=== PATIENT | female | born 1935 | race Hispanic/Latino ===

== ENCOUNTER 2018-11-29 10:23 | Observation (INO) | payer MEDICARE ==
[~2018-11-29] VITALS: Ht 154.9 cm; Wt 53.0 kg
[2018-11-29] MEDS ORDERED: METHYLPREDNISOLONE SOD SUCC 125 MG/2ML VIAL IV STA (10:48)
[2018-11-29] MEDS ORDERED: SODIUM CHLORIDE 0.9% 500ML 500 ML IV STA (10:48)
[2018-11-29] MEDS ORDERED: ALBUTEROL/IPRATROPIUM 3 ML NEB NEB ONE (11:00)
--- NOTE | 2018-11-29 11:05 | NUR ---
EKG PERFORMED AT BEDSIDE, NOTED THAT PT IS IN A FIB WITH RVR, INFORMED DR. HARPER; RECEIVED VERBAL ORDERS FOR DILTIAZEM 20 MG IVP ONCE, WILL ADMINISTER AND WILL CONTINUE TO MONITOR PT.
[2018-11-29] MEDS ORDERED: DILTIAZEM HCL VIAL 5 ML ONE (11:07)
[2018-11-29] MEDS ORDERED: DILTIAZEM HCL 5 MG/ML 5 ML VIAL IV ONE (11:15)
[2018-11-29 11:23] LABS: BILIRUBIN,URINE NEGATIVE (NEGATIVE); CLARITY,URINE CLEAR (CLEAR); COLOR,URINE YELLOW (YELLOW); KETONES,URINE NEGATIVE (NEGATIVE); LEUKOCYTE ESTERASE ,URINE TRACE (NEGATIVE); NITRITE,URINE NEGATIVE (NEGATIVE); PROTEIN,URINE DIPSTICK TRACE (NEGATIVE); URINE UROBILINOGEN 0.2 mg/dL (0.2 - 1)
[2018-11-29] MEDS ORDERED: ASPIRIN 81 MG CHEW TAB PO ONE (11:30)
[2018-11-29] MEDS ORDERED: DILTIAZEM HCL 5 MG/ML 5 ML VIAL IV NR (11:30)
[2018-11-29 11:33] LABS: BASOPHILS % 0.4 % (0.0-1.0); EOSINOPHILS % 0.8 % (0.0-6.0); HEMATOCRIT 38.6 % (34.2-44.1); HEMOGLOBIN 12.3 g/dL (12.0-16.0); LYMPHOCYTES # (AUTO) 1.2 (1.0-3.2); LYMPHOCYTES % 22.9 % (18.0-39.1); MEAN CORPUSCULAR HEMOGLOBIN 28.9 pg (28-32); MEAN CORPUSCULAR HGB CONC 31.9 g/dL (31-35); MEAN CORPUSCULAR VOLUME 90.8 fL (81-99); MONOCYTES # (AUTO) 0.6 (0.2-0.8); MONOCYTES % 11.5 % (4.4-11.3); NEUTROPHILS # (AUTO) 3.3 (2.1-6.9); NEUTROPHILS % 64.2 % (38.7-80.0); PLATELET COUNT 384 x10e3/uL (140-360); RED BLOOD COUNT 4.25 x10e6/uL (3.6-5.1); RED CELL DISTRIBUTION WIDTH 13.9 % (11.7-14.4)
[2018-11-29 11:37] LABS: INR 0.99; PROTHROMBIN TIME 13.6 seconds (11.9-14.5)
[2018-11-29 11:38] LABS: PARTIAL THROMBOPLASTIN TIME 25.7 seconds (23.8-35.5)
--- NOTE | 2018-11-29 11:38 | Diagnostic Imaging Report ---
EXAMINATION: CHEST SINGLE (PORTABLE) INDICATION: Shortness of breath COMPARISON: None FINDINGS: LINES/TUBES:None LUNGS:The lungs are hyperinflated. Prominent right apical pleural parenchymal thickening/scarring. Bilateral upper lobe predominant tubular bronchiectasis and interstitial scarring. Subsegmental atelectasis at the left lung base. PLEURA:No pleural effusion or pneumothorax. MEDIASTINUM:The cardiomediastinal silhouette appears mildlyAtherosclerotic calcifications of the thoracic aorta. BONES/SOFT TISSUES:No acute osseous injury. ABDOMEN:No free air under the diaphragm. IMPRESSION: Hyperinflated lungs with bilateral upper lobe predominant tubular bronchiectasis and interstitial scarring consistent with chronic lung disease. Prominent right apical pleural parenchymal thickening/scarring. Mild cardiomegaly. Signed by: Janneth Kumar MD on 11/29/2018 11:35 AM
[2018-11-29 11:39] LABS: BACTERIA,URINE FEW /HPF; EPITHELIAL CELLS,URINE FEW /LPF; WBC,URINE (MAN) 0-5 /HPF (0-5)
[2018-11-29 11:47] LABS: ALANINE AMINOTRANSFERASE 13 IU/L (0-55); ALBUMIN 3.4 g/dL (3.5-5.0); ALBUMIN/GLOBULIN RATIO 0.8 (0.8-2.0); ALKALINE PHOSPHATASE 80 IU/L (40-150); ANION GAP 10.4 mmol/L (8-16); BLOOD UREA NITROGEN 19 mg/dL (7-26); BUN/CREATININE RATIO 22 (6-25); CALCIUM 9.2 mg/dL (8.4-10.2); CARBON DIOXIDE 31 mmol/L (22-29); CHLORIDE 100 mmol/L (98-107); CREATINE KINASE 52 IU/L (29-168); CREATININE, SERUM 0.88 mg/dL (0.57-1.11); EST GLOMERULAR FILTRATION RATE > 60 ML/MIN (60-); GLUCOSE 109 mg/dL (74-118); POTASSIUM 3.4 mmol/L (3.5-5.1); SODIUM 138 mmol/L (136-145)
[2018-11-29] MEDS ORDERED: CEFTRIAXONE SOD 1 GM/NS 50 ML 50 ML IV ONE (12:00)
--- OUTSIDE RECORDS SUMMARY | 2018-11-29 12:46 | XMS REPORT ---
Author [facility] Address Unknown Phone Unavailable Care Team Providers Care Chef De Froid Name Role Phone Cornel STEWART Unavailable Unavailable Problems This patient has no known problems. Allergies, Adverse Reactions, Alerts This patient has no known allergies or adverse reactions. Medications This patient has no known medications. Results Test Description Test Time Test Comments Text Results Atomic Results Result Comments CHEST SINGLE (PORTABLE) 2018-11-29 11:29:00 [place] [address] Patient Name: JACKLYN MCGINNIS MR #: [id number] : 1935 Age/Sex: 83/F Req #: [id number] Adm Physician: Ordered by: MAX PARK NP Report #: [id number] Location: ER Room/Bed: Procedure: [id number] DX/CHEST SINGLE (PORTABLE) Exam Date: Exam Time: REPORT STATUS: Signed EXAMINATION: CHEST SINGLE (PORTABLE) INDICATION: Renae rtness of breath COMPARISON: None FINDINGS: LINES/TUBES:None LUNGS:The lungs are hyperinflated. Prominent right apical pleural parenchymal thickening/scarring. Bilateral upper lobe predominant tubular bronchiectasis and interstitial scarring. Subsegmental atelectasis at the left lung base. PLEURA:No pleural effusion or pneumothorax. MEDIASTINUM:The cardiomediastinal silhouette appears mildlyAtherosclerotic calcifications of the thoracic aorta. BONES/SOFT TISSUES:No acute osseous injury. ABDOMEN:No free air under the diaphragm. IMPRESSION: Hyperinflated lungs with bilateral upper lobe predominant tubular bronchiectasis and interstitial scarring consistent with chronic lung disease. Prominent right apical pleural parenchymal thickening/scarring. Mild cardiomegaly. Signed by: Eliana Schilling MD on 11/29/2018 11:35 AM Dictated By: ELIANA SCHILLING MD [id number] Transcribed By: ROBERT on 11/29/18 1135 COPY TO: MAX PARK NP
[2018-11-29] MEDS ORDERED: DIGOXIN 0.25 MG TAB PO NR (13:00)
--- NOTE | 2018-11-29 13:59 | NUR ---
ECHOVASCULAR TECH AT BEDSIDE AT THIS TIME FOR PT EVAL.
--- NOTE | 2018-11-29 15:25 | NUR ---
PT RECEIVED FROM ER VIA WHEEL CHAIR. AAOX3. FAMILY AT BEDSIDE. EDUCATED PT ABOUT FALL PRECAUTIONS. PT VERBALIZED UNDERSTANDING. CALL LIGHT WITH IN EASY REACH. INSTRUCTED PT TO USE CALL LIGHT FOR ANY NEEDS. BED IS LOCKED. PT REFUSED BED ALARM. PT DENIES NEEDS AT THIS TIME.
[2018-11-29] MEDS ORDERED: OMEPRAZOLE40 MG PO (15:32)
[2018-11-29] MEDS ORDERED: ATORVASTATIN CA10 MG PO (15:32)
[2018-11-29] MEDS ORDERED: AMLODIPINE BESY10 MG PO (15:32)
[2018-11-29 15:38] VITALS: BP 98/62
[2018-11-29 16:00] VITALS: BP 98/62
--- NOTE | 2018-11-29 16:00 | NUR ---
DR. ENCARNACION AT BEDSIDE. INFORMED DR ABOUT PT ELEVATED HR. FAMILY AT BEDSIDE.
[2018-11-29] MEDS: AMIODARONE HCL 200 MG TAB PO SCH (16:23)
[2018-11-29] MEDS: APIXAB 2.5 MG TABLET PO SCH (16:23)
--- NOTE | 2018-11-29 19:00 | NUR ---
BEDSIDE SHIFT REPORT GIVEN TO THE MACHINE OPERATOR HAY STACKER RN. PT DENIED FURTHER NEEDS.
--- NOTE | 2018-11-29 19:15 | NUR ---
Got bedside shift report from previous nurse. Call light within reach. Patient in bed. Family at bedside. Patient in no pain or distress.
[2018-11-29 19:21] LABS: CREATINE KINASE MB 1.1 ng/mL (0-5.0)
[2018-11-29 19:32] VITALS: BP 111/66
[2018-11-29 20:00] VITALS: BP 111/66
--- NOTE | 2018-11-29 23:52 | Consultation ---
DATE OF CONSULTATION: Cardiology consultation CHIEF COMPLAINT: The patient is an 83-year-old with palpitations and fatigue. HISTORY OF PRESENT ILLNESS: The patient is an 83-year-old, who came to the emergency room with the heart beating irregular and feeling very fatigued. The patient was noted to be in atrial fibrillation. The patient has had dyspnea, but no shortness of breath. PAST MEDICAL HISTORY: Significant for, 1. Hypertension. 2. Hyperlipidemia. MEDICATIONS: At home include amlodipine and atorvastatin. SOCIAL HISTORY: The patient does not drink and does not smoke. FAMILY HISTORY: There is no known family history of coronary artery disease. PHYSICAL EXAMINATION: GENERAL: The patient is an older female, in no obvious distress. VITAL SIGNS: Include a temperature of 98.6, pulse of 109, and blood pressure of 98/62. HEAD, EARS, EYES, NOSE, AND THROAT EXAM: The patient's cranium was normocephalic and atraumatic. Extraocular muscles were intact. Sclerae were anicteric. Pupils were equal, round, reactive to light. There was no pallor or cyanosis of the oral mucosa. There was no erythema or edema of the throat. NECK: Supple. No jugular venous distention. CHEST EXAM: Demonstrated rhonchi bilaterally. CARDIAC EXAM: Demonstrated an irregularly irregular rhythm with a short 2/6 systolic murmur. ABDOMINAL EXAM: Demonstrated good bowel sounds. No tenderness and no masses. EXTREMITIES: There is no clubbing, no cyanosis, and no edema. DIAGNOSTIC DATA: The patient's EKG demonstrated atrial fibrillation with nonspecific ST and T-wave changes. IMPRESSION: The patient is an 83-year-old with new onset atrial fibrillation. RECOMMENDATIONS: As Follows: 1. The patient will need to be started on Eliquis. 2. The patient will need to be started on amiodarone. 3. Thyroid function tests have been ordered. 4. An echocardiogram was done, which demonstrated an ejection fraction of 55%. Cedric Heath MD D[facility]/MODL /[id number] cc: Bassam Mcgregor MD
[2018-11-30] VITALS (8 sets, daily range): BP systolic 94–103; BP diastolic 52–73
[2018-11-30 02:46] LABS: CREATINE KINASE 52 IU/L (29-168)
[2018-11-30 05:02] LABS: HEMATOCRIT 35.2 % (34.2-44.1); HEMOGLOBIN 11.2 g/dL (12.0-16.0); LYMPHOCYTES # (AUTO) 0.6 (1.0-3.2); MEAN CORPUSCULAR HEMOGLOBIN 28.6 pg (28-32); MEAN CORPUSCULAR HGB CONC 31.8 g/dL (31-35); MEAN CORPUSCULAR VOLUME 89.8 fL (81-99); MONOCYTES # (AUTO) 0.1 (0.2-0.8); MONOCYTES % 1.5 % (4.4-11.3); NEUTROPHILS # (AUTO) 3.9 (2.1-6.9); NEUTROPHILS % 84.1 % (38.7-80.0); PLATELET COUNT 336 x10e3/uL (140-360); RED BLOOD COUNT 3.92 x10e6/uL (3.6-5.1)
[2018-11-30 05:25] LABS: ALANINE AMINOTRANSFERASE 13 IU/L (0-55); ALBUMIN 2.9 g/dL (3.5-5.0); ALBUMIN/GLOBULIN RATIO 0.8 (0.8-2.0); ALKALINE PHOSPHATASE 64 IU/L (40-150); ANION GAP 10.9 mmol/L (8-16); BLOOD UREA NITROGEN 18 mg/dL (7-26); BUN/CREATININE RATIO 25 (6-25); CALCIUM 8.5 mg/dL (8.4-10.2); CARBON DIOXIDE 27 mmol/L (22-29); CHLORIDE 103 mmol/L (98-107); CREATININE, SERUM 0.73 mg/dL (0.57-1.11); EST GLOMERULAR FILTRATION RATE > 60 ML/MIN (60-); GLUCOSE 127 mg/dL (74-118); POTASSIUM 3.9 mmol/L (3.5-5.1); SODIUM 137 mmol/L (136-145)
[2018-11-30 05:59] LABS: CREATINE KINASE MB 1.8 ng/mL (0-5.0)
--- NOTE | 2018-11-30 07:07 | NUR ---
Bedside shift report given to oncoming nurse. Call light within reach. Family at bedside. Patient in no pain or distress.
--- NOTE | 2018-11-30 07:11 | NUR ---
Received bedside report from night nurse. Patient resting in bed, no signs of distress or c/o pain at this time. All safety measures in place. Family at bedside. Will continue to monitor.
[2018-11-30] MEDS: AMIODARONE HCL 200 MG TAB PO SCH ×2 (08:50→17:42)
[2018-11-30] MEDS: APIXAB 2.5 MG TABLET PO SCH ×2 (08:57→17:42)
[2018-11-30] MEDS ORDERED: DIGOXIN 0.125 MG TAB PO SCH (09:00)
--- NOTE | 2018-11-30 12:54 | NUR ---
Spoke to Dr. Heath regarding plan. States pt can discharge home from his standpoint. JEWELL Schwartz and JEWELL Galdamez was notified. States they will call Dr. Mcgregor.
--- NOTE | 2018-11-30 15:57 | History and Physical ---
PRIMARY CARE PHYSICIAN: Lisandra Parikh MD STRIKE WARFARE/MISSILE SYSTEMS OFFICER: Dr. Cedric Heath. CHIEF COMPLAINT: New onset atrial fibrillation. HISTORY OF PRESENT ILLNESS: The patient is an 83-year-old female with new onset atrial fibrillation. The patient is otherwise stable at this time. The patient has increase in fatigue. She was very active prior to the atrial fibrillation. She failed palpitation. The patient is otherwise stable at this time. PAST MEDICAL HISTORY: 1. Hypertension. 2. Dyslipidemia. PAST SURGICAL HISTORY: Noncontributory. SOCIAL HISTORY: The patient does not smoke or use alcohol. No regular drugs. FAMILY HISTORY: Significant for coronary disease. ALLERGIES: NO KNOWN ALLERGIES. HOME MEDICATIONS: List is reviewed. REVIEW OF SYSTEMS: Palpitation and fatigue. PHYSICAL EXAMINATION: VITAL SIGNS: Temperature is 98, blood pressure 103/71, pulse rate 89, and respirations 18. GENERAL: The patient is not in acute distress. HEENT: Normocephalic and atraumatic. Pupils reactive. Anicteric. NECK: Supple grossly. PULMONARY: Diminished breath sounds bilaterally. CARDIOVASCULAR: S1, S2. Irregularly irregular rate controlled now. ABDOMEN: Soft. EXTREMITIES: No cyanosis or edema. NEUROLOGIC: No gross focal deficit. LABORATORY DATA: Sodium is 137, potassium 3.9, chloride 103, bicarb 27, BUN 18, and creatinine 0.7. Glucose 127. WBC is 4.6. Hemoglobin 11.2 and hematocrit 35.2. Platelets are 336. IMPRESSION: 1. New onset atrial fibrillation. 2. Hypertension. PLAN: Continue with Eliquis and diltiazem along with digoxin and amiodarone loading dosing. We will check the patient's thyroid function test. Resume home medications. MD SONU Prescott/TRUDIL /[id number]
--- NOTE | 2018-11-30 16:09 | NUR ---
Called Dr. Mcgregor and left message regarding patient being okay to DC home per Dr. Heath. Awaiting return call.
--- NOTE | 2018-11-30 18:58 | NUR ---
Bedside report given to night nurse. Patient resting in bed, in stable condition, no signs of distress or c/o pain at this time. All safety measures in place. Family at bedside.
--- NOTE | 2018-11-30 20:13 | NUR ---
Weaned patient to 1L NC O2 saturations 95% on 1L NC.
[2018-12-01 00:30] VITALS: BP 116/73
[2018-12-01 03:35] VITALS: BP 106/74
--- NOTE | 2018-12-01 04:00 | NUR ---
Removed O2 from patient. O2 saturations 95% upon removal. will recheck O2 sats in 30 mins.
--- NOTE | 2018-12-01 04:30 | NUR ---
Patient O2 sats 90-91% after exertion to restrooms.
--- NOTE | 2018-12-01 05:50 | NUR ---
Rechecked O2 sats, sats 94-95% at rest. Educated patient on no longer needed oxygen and to call nurse if SOB occurs. Family and patient verbalized understanding.
--- NOTE | 2018-12-01 07:11 | NUR ---
Received bedside report from night nurse. Patient awake and sitting up in bed, no signs of distress or c/o pain at this time. All safety measures in place. Family at bedside. Will continue to monitor.
[2018-12-01] MEDS: AMIODARONE HCL 200 MG TAB PO SCH (07:28)
[2018-12-01] MEDS: APIXAB 2.5 MG TABLET PO SCH (07:28)
--- NOTE | 2018-12-01 07:32 | NUR ---
RECEIVED A CALL FROM TELE THAT PT WAS AFIB WITH RVR. CHECKED ON PT, TECH AT BEDSIDE TAKING VITALS. B/P 122/61 AND HR 85. PT WAS ASYMPTOMATIC. THIS NURSE HEARD HB THAT WAS IRREGULAR BUT WITH STRONG PULSE. FAMILY AT BEDSIDE. TELE BOX SHOWING HR IN 120'S AND AFIB. WILL CONTINUE TO MONITOR.
[2018-12-01 07:53] VITALS: BP 122/61
[2018-12-01 09:06] VITALS: BP 122/61
[2018-12-01] MEDS ORDERED: AMIODARONE HCL200 MG PO (10:21)
[2018-12-01] MEDS ORDERED: ELIQUIS (10:24)
--- NOTE | 2018-12-01 10:30 | NUR ---
Received orders to DC patient home. Dr. Mcgregor left written RX for amiodarone 200 mg BID (#60-no RF) and Eliquis 2.5 mg BID (#60-2 RF).
--- NOTE | 2018-12-02 08:04 | Discharge Summary ---
PRIMARY CARE PHYSICIAN: Dr. Lisandra Parikh. PLUMBERS AND TOP HELPERS: Dr. Cedric Heath. FINAL DIAGNOSIS: New onset atrial fibrillation, now sinus rhythm. SUMMARY: An 83-year-old female with new onset atrial fibrillation. Echocardiogram showed ejection fraction is slightly low at 40%. The patient is stable. Dr. Heath has cleared the patient to go home with amiodarone 200 mg twice a day and Eliquis 2.5 mg b.i.d. The patient will discontinue on Norvasc. The patient is otherwise stable. She is feeling fine. No chest pain. No shortness of breath. No abdominal pain. The patient is stable, discharged home. Follow up with Dr. Heath in [address] Parikh, her primary care physician in approximately 1 week. MD SONU Prescott/MODL /[id number]
== END 2018-12-01 11:04 | disposition home or self-care (01) ==
LOC: ER 10:23 → ERHOLD 12:37 → MED/SURG2 15:24
PROVIDERS: ADMIT Internal Medicine; ATTEND Internal Medicine
DX: I48.0 Paroxysmal atrial fibrillation (principal); R53.83 Other fatigue; I10 Essential (primary) hypertension; E78.5 Hyperlipidemia, unspecified
CPT/HCPCS: 36415; 71045; 80053 ×2; 81001; 82550 ×2; 82553 ×2; 83880; 84443; 84484 ×2; 85025 ×2; 85610; 85730; 93005; 93306; 94640; 99285; G0378 ×3; J0696; J2930; J7040